=== PATIENT | female | born 2000 | race African-American/Black ===

== ENCOUNTER → 2020-05-29 | Outpatient (CLI) | payer SELFPAY ==
--- NOTE | 2020-05-29 14:37 | ER RDC ASSESSMENT REPORT ---
Intake - In the Last 14 days Have you traveled outside [place]?: No Have you been in close contact with someone CONFIRMED: Yes Worked in Healthcare?: No - Symptoms Subjective Fever([place] feverish): No Chills: No Muscule Aches: No Runny Nose: No Sore Throat: No Cough (New or worsening chronic cough): No Shortness of breath: No Nausea or Vomiting: No Headache: No Abdominal Pain: No Diarrhea(3 or more loose stools in last 24 hours): No - Do you have any of the following Chronic lung disease: Asthma or emphysema or COPD: No Cystic Fibrosis: No Diabetes: No High Blood Pressure: No Cardiovascular Disease: No Chronic Kidney Disease: No Chronic Liver Disease: No Chronic blood disorder like Sickle Cell Disease: No Weak immune system due to disease or medication: No Neurologic condition that limits movement: No Developmental delay - Moderate to Severe: No Recent (within past 2 weeks) or current : No - Objective Temperature: 98.2 F Pulse Rate: 113 Respiratory Rate: 18 Blood Pressure: 127/56 O2 Sat by Pulse Oximetry: 99 Objective: Given above, testing performed: covid Disposition: Home; Selfcare General - General Stated Complaint: covid test Time Seen by Provider: 05/29/20 14:00 Mode of Arrival: Ambulatory Information source: Patient - HPI Notes: Patient presents to clinic for COVID-19 testing after coming in close contact with another COVID 19 positive individual. Patient is asymptomatic. They deny any cough, shortness of breath, fever, chills, muscle aches, rhinorrhea, sore throat, nausea or vomiting, headache, abdominal pain or diarrhea. Patient has no acute medical concerns. Past Medical History - General Information source: Patient - Social History Smoking Status: Current Every Day Smoker Cigarette use (# per day): Yes - 7 - Past Medical History Cardiac Medical History: Reports: None Pulmonary Medical History: Reports: None EENT Medical History: Reports: None Neurological Medical History: Reports: None Endocrine Medical History: Reports: None Renal/ Medical History: Reports: None Malignancy Medical History: Reports: None GI Medical History: Reports: None Musculoskeletal Medical History: Reports None Skin Medical History: Reports None Psychiatric Medical History: Reports: None Traumatic Medical History: Reports: None Infectious Medical History: Reports: None Past Surgical History: Reports: None Physical Exam - General General appearance: Appears well, Alert In distress: None Notes: PHYSICAL EXAMINATION: GENERAL: Well-appearing and in no acute distress. HEAD: Atraumatic, normocephalic. EYES: sclera anicteric, conjunctiva are normal. ENT: nares patent. Moist mucous membranes. NECK: Normal range of motion, supple without lymphadenopathy. LUNGS: No increased work of breathing. Lung sounds CTAB and equal. No wheezes rales or rhonchi. HEART: Regular rate and rhythm without murmurs. ABDOMEN: Soft, nontender, normal bowel sounds, no guarding. EXTREMITIES: Normal range of motion, no pitting edema. No cyanosis. NEUROLOGICAL: A&O x 3. Normal speech. PSYCH: Normal mood, normal affect. SKIN: Warm, Dry, normal turgor, no rashes or lesions noted Patient Education/Counseling Counseling/Education: Patient presents for COVID 19 testing after close exposure to another person who has tested positive for COVID 19. Patient is asymptomatic at this time. Patient does not have emergency worrying symptoms such as difficulty breathing, shortness of breath, chest pain, pressure, confusion or cyanosis. Patient appears suitable for discharge as vital signs are stable and patient is nontoxic in appearance. Good return precautions have been discussed with patient, mary pagan verbalized understanding and is agreeable with discharge plan of care at this time. Guidance for worsening S/SX: As a person under investigation for Covid 19, the [place] department of Health and Human Services, division of public health advises you to adhere to the following guidance until your test results are reported to you. If your test result is positive, you will receive additional information from your provider and your local health department at that time. Remain at home until you are cleared by the health provider or public health authorities. Keep a log of visitors to your home, notify any visitors to your home of your isolation status. If you plan to move to a new address or leave the county, notify the local health department in your County. Call your doctor or seek care if you have an urgent medical need. Before seeking medical care, call ahead to get instructions from the provider before arriving at the medical office clinic or hospital. Notify them that you are being tested for the virus that causes Covid 19 so that arrangements can be made, as necessary, to prevent transmission to others in the healthcare setting. Next, notify the local health department in your county. If a medical emergency arises and you need to call 911, inform the first responders that you are being tested for the virus that causes Covid 19. Next, notify the local health department in your county. RDC Discharge - Discharge Clinical Impression: Encounter for screening laboratory testing for COVID-19 virus in asymptomatic patient Condition: Good Disposition: Home; Selfcare
[2020-05-29 14:38] VITALS: BP 127/56
== END ==
LOC: RDC 13:52
PROVIDERS: ATTEND Registered Nurse
DX: Z20.828 Contact with and (suspected) exposure to other viral communicable diseases (principal); F17.210 Nicotine dependence, cigarettes, uncomplicated
CPT/HCPCS: 87635; C9803; 99201; 99211

== ENCOUNTER 2020-06-13 15:52 | Emergency (ER) | payer SELFPAY ==
--- NOTE | 2020-06-13 16:05 | ER Document Report ---
ED Medical Screen (RME) - General Chief Complaint: Vaginal Bleeding Stated Complaint: VAGINAL BLEEDING Time Seen by Provider: 06/13/20 15:59 Notes: HPI: 19-year-old female presenting for evaluation of pelvic pain with heavy vaginal spotting over the last 3 days. Took a home test 2 days ago that was positive. Prima . Pain radiates through the lower central pelvis into the low back. PHYSICAL EXAMINATION: exam deferred in triage. Mild tenderness across the pelvis more focal in the left pelvis I have greeted and performed a rapid initial assessment of this patient. A comprehensive ED assessment and evaluation of the patient, analysis of test results and completion of medical decision making process will be conducted by an additional ED providers. - Related Data Allergies/Adverse Reactions: No Known Allergies Allergy (Verified 06/13/20 15:59) Physical Exam - Vital signs Vitals: Temp Pulse Resp BP Pulse Ox 98.4 F 102 H 16 128/79 H 98 06/13/20 15:56 06/13/20 15:56 06/13/20 15:56 06/13/20 15:56 06/13/20 15:56 Course - Vital Signs Vital signs: Temp Pulse Resp BP Pulse Ox 98.4 F 102 H 16 128/79 H 98 06/13/20 15:56 06/13/20 15:56 06/13/20 15:56 06/13/20 15:56 06/13/20 15:56
[2020-06-13 16:46] LABS: ABSOLUTE BASOPHILS # (AUTO) 0.1 10^3/uL (0.0-0.2); ABSOLUTE LYMPHOCYTES (AUTO) 1.3 10^3/uL (0.5-4.7); ABSOLUTE MONOCYTES (AUTO) 0.7 10^3/uL (0.1-1.4); ABSOLUTE NEUT (AUTO) 4.9 10^3/uL (1.7-8.2); BASOPHILS % (AUTO) 1.1 % (0-2); EOSINOPHILS % (AUTO) 0.6 % (0-6); HEMATOCRIT 29.9 % (36.0-47.0); HEMOGLOBIN 9.4 g/dL (12.0-15.5); LYMPHOCYTES % (AUTO) 18.1 % (13-45); MEAN CORPUSCULAR HEMOGLOBIN 22.2 pg (27.0-33.4); MEAN CORPUSCULAR HGB CONC 31.5 g/dL (32.0-36.0); MEAN CORPUSCULAR VOLUME 71 fl (80-97); MONOCYTES % (AUTO) 10.1 % (3-13); PLATELET COUNT 289 10^3/uL (150-450); RED BLOOD COUNT 4.24 10^6/uL (3.72-5.28); RED CELL DISTRIBUTION WIDTH 19.5 % (11.5-14.0); SEGMENTED NEUTROPHILS % (AUTO) 70.1 % (42-78); TOTAL CELLS COUNTED % (AUTO) 100 %; WHITE BLOOD COUNT 6.9 10^3/uL (4.0-10.5)
[2020-06-13 16:56] LABS: APPEARANCE,URINE SLIGHTLY-CLOUDY; BILIRUBIN,URINE NEGATIVE (NEGATIVE); COLOR,URINE YELLOW; GLUCOSE, URINE NEGATIVE (NEGATIVE); KETONES,URINE 20 mg/dL (NEGATIVE); LEUKOCYTE ESTERASE,URINE NEGATIVE (NEGATIVE); NITRITE,URINE NEGATIVE (NEGATIVE); PROTEIN,URINE NEGATIVE (NEGATIVE); URINE SPECIFIC GRAVITY 1.015; UROBILINOGEN,URINE NEGATIVE mg/dL (<2.0)
[2020-06-13 17:13] LABS: ALBUMIN 4.7 g/dL (3.5-5.0); ALKALINE PHOSPHATASE 62 U/L (38-126); ANION GAP 16 (5-19); ASPARTATE AMINO TRANSFERASE 26 U/L (14-36); BILIRUBIN,DIRECT 0.2 mg/dL (0.0-0.4); BILIRUBIN,TOTAL 0.4 mg/dL (0.2-1.3); BLOOD UREA NITROGEN 4 mg/dL (7-20); CALCIUM 9.5 mg/dL (8.4-10.2); CARBON DIOXIDE 19 mmol/L (22-30); CHLORIDE 105 mmol/L (98-107); GLUCOSE 81 mg/dL (75-110); TOTAL PROTEIN 8.3 g/dL (6.3-8.2)
--- NOTE | 2020-06-13 18:22 | RADIOLOGY REPORT (SQ) ---
EXAM DESCRIPTION: U/S OB TRANSVAG W/DOPPLER IMAGES COMPLETED DATE/TIME: 06/13/2020 6:00 pm REASON FOR STUDY: pelvic pain r/o ectopic COMPARISON: None. TECHNIQUE: Transvaginal static and realtime grayscale images acquired of the pelvis. Additional april cted spectral and color Doppler images recorded. All images stored on PACs. CLINICAL AGE: Not known. bHC,242 LIMITATIONS: None. FINDINGS: UTERUS: Several fibroids measuring up to 6 cm. GESTATIONAL SAC: Abnormal shape. Mean sac diameter 8.5 mm. YOLK SAC: No. POLE: None present. RIGHT ADNEXA: Normal ovary with normal vascular flow. No adnexal free fluid. No adnexal masses. LEFT ADNEXA: Ovary not identified due to poor acoustical window. No adnexal free fluid. No adnexal masses. FREE FLUID: Trace amount. OTHER: No other significant finding. IMPRESSION: POSSIBLE EARLY INTRAUTERINE . CONSIDER F/U BHCG AND/OR ULTRASOUND FOR VERIFICATION AND TO EXCLUDE ECTOPIC . Trimester of : First trimester - 0 to 13 weeks. TECHNICAL DOCUMENTATION: JOB ID: [id number] [employer]- All Rights Reserved Reading location - IP/workstation name: [email or web address]
[2020-06-13] MEDS ORDERED: ACETAMINOPHEN 325 MG TABLET PO ONE (18:37)
--- NOTE | 2020-06-13 18:42 | ER Document Report ---
ED General - General Chief Complaint: Vaginal Bleeding Stated Complaint: VAGINAL BLEEDING Time Seen by Provider: 06/13/20 15:59 Notes: Patient is a 19-year-old -[place] female with a history of iron deficiency anemia who is G1, P0 at an unknown weeks gestation who presents to the emergency department with a chief complaint of lower abdominal discomfort and vaginal bleeding. Patient states her last normal menstrual cycle was at the beginning of May lasted 5 days and was normal. She states on 29 May she found out she was . She states over the past 3 days she has had some bleeding. She states the first day was a light spotting reports yesterday was a slight heavier flow and today is spotting again. She states the blood is mixed between dark and bright colors. Denies any passage of tissue or clots. States she started having some discomfort today. 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 She admits to a history of back issues from a lumbar strain that she still suffers with that she thinks is compounding the lower abdominal discomfort. States the pain is worse with movement. Denies any injury or trauma recently. States she is not currently taking iron. She is unsure of what her previous hemoglobin levels were. Denies any vomiting or diarrhea. No vaginal discharge otherwise. No urinary complaints. No fever. No chest pain or shortness of breath. - Related Data Allergies/Adverse Reactions: No Known Allergies Allergy (Verified 06/13/20 15:59) Past Medical History - Social History Smoking Status: Current Every Day Smoker Family History: Reviewed & Not Pertinent Review of Systems - Review of Systems Constitutional: denies: Fever EENT: denies: Nose discharge Cardiovascular: denies: Dyspnea Respiratory: denies: Short of breath Gastrointestinal: denies: Constipation Genitourinary: denies: Flank pain Female Genitourinary: Vaginal bleeding Musculoskeletal: denies: Neck pain Skin: denies: Dryness Hematologic/Lymphatic: denies: Easy bruising Neurological/Psychological: denies: Weakness Physical Exam - Vital signs Vitals: Temp Pulse Resp BP Pulse Ox 98.4 F 102 H 16 128/79 H 98 06/13/20 15:56 06/13/20 15:56 06/13/20 15:56 06/13/20 15:56 06/13/20 15:56 - General General appearance: Appears well, Alert In distress: None - Respiratory Respiratory status: No respiratory distress Chest status: Nontender Breath sounds: Normal Chest palpation: Normal - Cardiovascular Rhythm: Regular Heart sounds: Normal auscultation - Abdominal Inspection: Normal Distension: No distension Bowel sounds: Normal Tenderness: Tender - Left lower and right lower quadrant, Guarding - Back Back: Nontender - Right lower paralumbar musculature - Extremities General lower extremity: Normal inspection. No: Edema - Neurological Neuro grossly intact: Yes Cognition: Normal Orientation: AAOx4 - Psychological Associated symptoms: Anxious - Skin Skin Temperature: Warm Skin Moisture: Dry Skin Color: Normal Course - Re-evaluation Re-evalutation: 06/13/20 18:40 Patient with a history of anemia. She is had no or care yet. We will start her on iron supplementation for low hemoglobin. We discussed possibility of early miscarriage versus early . The ultrasound shows what appears to be a gestational sac in the uterus per radiologist. There does not appear to be any shadowing masses or fluid in the adnexa therefore at this point no suspicion for ectopic . hCG is low could be consistent with the early . The patient will return in 48 hours for repeat hCG and ultrasound. Instructed pelvic rest for the next 48 hours until reevaluation. She will be given a note for work to remain off until her reevaluation. Discussed with her the importance of follow-up and advised that she return here or any ER immediately with any new, persistent or worsening symptoms. She verbalized understood and agreed. - Vital Signs Vital signs: Temp Pulse Resp BP Pulse Ox 98.4 F 102 H 16 128/79 H 98 06/13/20 15:56 06/13/20 15:56 06/13/20 15:56 06/13/20 15:56 06/13/20 15:56 - Laboratory Result Diagrams: 06/13/20 16:12 06/13/20 16:12 Laboratory results interpreted by me: 06/13/20 06/13/20 06/13/20 16:12 16:12 16:12 Hgb 9.4 L Hct 29.9 L MCV 71 L MCH 22.2 L MCHC 31.5 L RDW 19.5 H Carbon Dioxide 19 L BUN 4 L Total Protein 8.3 H Beta HCG, Quant 2242.00 H Urine Ketones 20 H Urine Ascorbic Acid 40 H Discharge - Discharge Clinical Impression: Vaginal bleeding during Condition: Stable Disposition: HOME, SELF-CARE Instructions: Vaginal Bleeding ([facility]), Bleeding During Early ([facility]) Additional Instructions: Please follow-up here in 48 hours for repeat blood level and ultrasound. Please report here or the nearest ER immediately with any new, persistent or worsening symptoms. Prescriptions: Ferrous Sulfate [Feosol 325 mg Tablet] 325 mg PO DAILY #30 tab Referrals: TAMY ARMENTA MD [ACTIVE STAFF] - Follow up as needed
[2020-06-13 19:04] VITALS: BP 110/58
== END 2020-06-13 19:05 | disposition home or self-care (01) ==
LOC: ER 15:52
DX: O46.90 Antepartum hemorrhage, unspecified, unspecified trimester (principal); O99.019 Anemia complicating pregnancy, unspecified trimester; D50.9 Iron deficiency anemia, unspecified; O26.899 Other specified pregnancy related conditions, unspecified trimester; R10.2 Pelvic and perineal pain; O99.330 Smoking (tobacco) complicating pregnancy, unspecified trimester; F17.200 Nicotine dependence, unspecified, uncomplicated; Z3A.00 Weeks of gestation of pregnancy not specified
CPT/HCPCS: 36415; 76817; 80053; 81001; 84702; 85025; 86900; 86901; 93976; 99284

== ENCOUNTER 2020-06-15 14:19 | Emergency (ER) | payer MEDICAID ==
--- NOTE | 2020-06-15 15:01 | ER Document Report ---
ED Medical Screen (RME) - General Chief Complaint: Vaginal Bleeding Stated Complaint: VAGINAL BLEEDING,ABDOMINAL PAIN Time Seen by Provider: 06/15/20 14:52 Mode of Arrival: Ambulatory Information source: Patient Notes: HPI; 19-year-old female presents to the emergency room for follow-up hCG and ultrasound from 2 days ago. She was seen here on the for vaginal bleeding ultrasound showed an irregularly-shaped gestational sac with no yolk sac, no heartbeat, ultrasound showed uterine fibroids. Her hCG at that time was 2242.. Patient states she is continuing to bleed but has had decreased pain. She is a 1. With no previous OB care. PE: Alert and oriented x3. Lungs: Clear to auscultation without rales, rhonchi, wheezes. Heart: Regular rate rhythm without murmurs, rubs, gallops. I have greeted and performed a rapid initial assessment of this patient. A comprehensive ED assessment and evaluation of the patient, analysis of test results and completion of the medical decision making process will be conducted by additional ED providers. I have specifically instructed the patient or family members with the patient to immediately return to any nursing staff should anything change in the patient's condition or with their chief complaint. TRAVEL OUTSIDE OF THE [place] IN LAST 30 DAYS: No - Related Data Allergies/Adverse Reactions: No Known Allergies Allergy (Verified 06/15/20 14:52) Home Medications: iron Past Medical History - Social History Chew tobacco use (# tins/day): No Frequency of alcohol use: None Drug Abuse: None Physical Exam - Vital signs Vitals: Temp Pulse Resp BP Pulse Ox 99.1 F 93 20 149/59 H 100 06/15/20 14:44 06/15/20 14:44 06/15/20 14:44 06/15/20 14:44 06/15/20 14:44 Course - Vital Signs Vital signs: Temp Pulse Resp BP Pulse Ox 99.1 F 93 20 149/59 H 100 06/15/20 14:44 06/15/20 14:44 06/15/20 14:44 06/15/20 14:44 06/15/20 14:44
--- NOTE | 2020-06-15 16:24 | RADIOLOGY REPORT (SQ) ---
EXAM DESCRIPTION: U/S OB TRANSVAG W/DOPPLER IMAGES COMPLETED DATE/TIME: 06/15/2020 4:09 pm REASON FOR STUDY: vaginal bleeding COMPARISON: 06/13/2020 TECHNIQUE: Transvaginal static and realtime grayscale images acquired of the pelvis. Additional april cted spectral and color Doppler images recorded. All images stored on PACs. CLINICAL AGE: 6 weeks 1 day BHCG: Not available. LIMITATIONS: None. FINDINGS: UTERUS: No visualized intrauterine . Multiple fibroids. RIGHT ADNEXA: Normal ovary with normal vascular flow. No adnexal free fluid. No adnexal masses. LEFT ADNEXA: Normal ovary with normal vascular flow. No adnexal free fluid. No adnexal masses. FREE FLUID: Trace amount. OTHER: No other significant finding. IMPRESSION: NO VISUALIZED INTRA- OR EXTRAUTERINE . bHCG LEVEL NOT AVAILABLE FOR CORRELATION WITH US FINDINGS. ECTOPIC CANNOT BE EXCLUDED. FOLLOW-UP ULTRASOUND AND SERIAL BHCG LEVELS STRONGLY RECOMMENDED TO ACCURATELY ASSESS STATU S. TECHNICAL DOCUMENTATION: JOB ID: [id number] 2010 [employer]- All Rights Reserved Reading location - IP/workstation name: [email or web address]
[2020-06-15 16:32] LABS: ABSOLUTE EOSINOPHILS # (AUTO) 0.1 10^3/uL (0.0-0.6); ABSOLUTE LYMPHOCYTES (AUTO) 1.5 10^3/uL (0.5-4.7); ABSOLUTE MONOCYTES (AUTO) 0.6 10^3/uL (0.1-1.4); BASOPHILS % (AUTO) 0.5 % (0-2); EOSINOPHILS % (AUTO) 1.5 % (0-6); HEMATOCRIT 31.8 % (36.0-47.0); LYMPHOCYTES % (AUTO) 27.7 % (13-45); MEAN CORPUSCULAR HEMOGLOBIN 22.1 pg (27.0-33.4); MEAN CORPUSCULAR HGB CONC 31.4 g/dL (32.0-36.0); MEAN CORPUSCULAR VOLUME 70 fl (80-97); MONOCYTES % (AUTO) 12.3 % (3-13); PLATELET COUNT 317 10^3/uL (150-450); RED BLOOD COUNT 4.53 10^6/uL (3.72-5.28); RED CELL DISTRIBUTION WIDTH 19.5 % (11.5-14.0); TOTAL CELLS COUNTED % (AUTO) 100 %; WHITE BLOOD COUNT 5.3 10^3/uL (4.0-10.5)
[2020-06-15 18:15] VITALS: BP 137/71
[2020-06-15] MEDS ORDERED: HYDROCODONE/ACETAMINOPHEN 5-325 MG (6 TAB/ER DISP) PO PRN (21:45)
--- NOTE | 2020-06-15 21:45 | ER Document Report ---
ED GI/ - General Chief Complaint: Vaginal Bleeding Stated Complaint: VAGINAL BLEEDING,ABDOMINAL PAIN Time Seen by Provider: 06/15/20 14:52 Primary Care Provider: [facility] [Provider Group] - Follow up in 3-5 days Mode of Arrival: Ambulatory Notes: Patient is a 19 year old female, at suspected several weeks but uncertain gestation in the first trimester, she was seen here about 2 days ago, she had an ultrasound at that time which appeared to show a questionable gestational sac, hCG was 2242. Patient states that she has had continued bleeding although there is actually decreasing in pain and now she is mainly only bleeding with going to the bathroom. Patient is on no daily medications, denies any surgeries, denies a past medical history. TRAVEL OUTSIDE OF THE [place] IN LAST 30 DAYS: No - Related Data Allergies/Adverse Reactions: No Known Allergies Allergy (Verified 06/15/20 14:52) Home Medications: iron Past Medical History - General Information source: Patient - Social History Smoking Status: Current Every Day Smoker Chew tobacco use (# tins/day): No Frequency of alcohol use: None Drug Abuse: None Lives with: Family Family History: Reviewed & Not Pertinent Patient has homicidal ideation: No - Immunizations Immunizations up to date: Yes Hx Diphtheria, Pertussis, Tetanus Vaccination: Yes Review of Systems - Review of Systems Constitutional: No symptoms reported EENT: No symptoms reported Cardiovascular: No symptoms reported Respiratory: No symptoms reported Gastrointestinal: No symptoms reported Genitourinary: No symptoms reported Female Genitourinary: See HPI Musculoskeletal: No symptoms reported Skin: No symptoms reported Hematologic/Lymphatic: No symptoms reported Neurological/Psychological: No symptoms reported Physical Exam - Vital signs Vitals: Temp Pulse Resp BP Pulse Ox 99.1 F 93 20 149/59 H 100 06/15/20 14:44 06/15/20 14:44 06/15/20 14:44 06/15/20 14:44 06/15/20 14:44 - Notes Notes: GENERAL: Alert, interacts well. No acute distress. HEAD: Normocephalic, atraumatic. EYES: Pupils equal, round, and reactive to light. Extraocular movements intact. ENT: Oral mucosa moist, tongue midline. Oropharynx unremarkable. Airway patent. LUNGS: Clear to auscultation bilaterally, no wheezes, rales, or rhonchi. No respiratory distress. Non-tender chest wall. HEART: Regular rate and rhythm. No murmur ABDOMEN: Soft, non-tender. Non-distended. Bowel sounds present in all 4 quad rants. GENITOURINARY: Small amount of bleeding but no heavy bleeding is noted, no products of conception noted at the cervix or in the vaginal canal, no tenderness, discharge, or concerning findings otherwise. Exam performed with Chantal RN at bedside. EXTREMITIES: Moves all 4 extremities spontaneously. No edema, normal radial and dorsalis pedis pulses bilaterally. No cyanosis. BACK: no cervical, thoracic, lumbar midline tenderness. No saddle anesthesia, normal distal neurovascular exam. Moves all extremities in full range of motion. NEUROLOGICAL: Alert and oriented x3. Normal speech. Cranial nerves II through XII grossly intact. Strength 5/5 in all extremities. PSYCH: Normal affect, normal mood. SKIN: Warm, dry, normal turgor. No rashes or lesions noted. Course - Re-evaluation Re-evalutation: Patient with minimal bleeding on evaluation, soft benign abdomen, unremarkable vital signs, she is well-appearing. Patient became very tearful and then upset with the news but after discussion and reassurance she did calm down. I discussed details of what appears to be a miscarriage. Patient does have family support. Provided with pain medication, discussed [facility] follow-up, discussed return precautions in detail. Patient states appreciation and agreement. Stable and well-appearing at time of discharge. - Vital Signs Vital signs: Temp Pulse Resp BP Pulse Ox 99.1 F 80 20 137/71 H 100 06/15/20 18:13 06/15/20 18:13 06/15/20 18:13 06/15/20 18:13 06/15/20 18:13 - Laboratory Result Diagrams: 06/15/20 15:58 Laboratory results interpreted by me: 06/15/20 06/15/20 15:58 15:58 Hgb 10.0 L Hct 31.8 L MCV 70 L MCH 22.1 L MCHC 31.4 L RDW 19.5 H Beta HCG, Quant 280.12 H Discharge - Discharge Clinical Impression: Miscarriage, Vaginal bleeding Condition: Stable Disposition: HOME, SELF-CARE Additional Instructions: You have had a miscarriage. The miscarriage occurred because the fetus did not develop normally. There is nothing you did to cause it, and nothing you could have done to prevent it. About one in four ends in miscarriage. You should rest in bed for two or three days. As there is some risk of infection of the uterus, you should not have intercourse for one week (or until okayed by your physician). Please call the [facility] referral for close follow-up and additional evaluation and management. Return if there is heavy or persistent vaginal bleeding, dizziness or passing out, fever, foul discharge, continued cramping pains, or severe worsening abdominal pain. Prescriptions: Hydrocodone/Acetaminophen [[place] 5-325 mg Tablet] 1 - 2 tab PO Q6H PRN #10 tablet PRN Reason: Forms: Return to Work Referrals: [facility] [Provider Group] - Follow up in 3-5 days
== END 2020-06-15 22:58 | disposition home or self-care (01) ==
LOC: ER 14:19
DX: O03.9 Complete or unspecified spontaneous abortion without complication (principal); R10.9 Unspecified abdominal pain; F17.200 Nicotine dependence, unspecified, uncomplicated
CPT/HCPCS: 36415; 76817; 84702; 85025; 93976; 99285